=== PATIENT | female | born 1940 | race Caucasian/White ===

== ENCOUNTER 2019-06-11 19:21 | Emergency (ER) | payer MEDICARE, BC ==
[2019-06-11 19:34] VITALS: RESP 18
--- NOTE | 2019-06-11 20:24 | ED ---
Fall HPI - General Chief Complaint: Fall Stated Complaint: fall/head lac Time Seen by Provider: 06/11/19 19:38 Source: patient Mode of arrival: ambulatory - History of Present Illness Initial Comments: Patient is an 78-year-old female presenting to the emergency department after falling 3 days ago. Patient states she was carrying in groceries from outside and was walking up steps when she tripped on the bottom 2 falling backwards. Patient denies pain and a blood thinner. Patient believes she lost consciousness for an unknown amount of time as when she came to she noticed blood on the cement from her head. Patient states she grabbed her things and went inside. Patient states the following day she had an episode of nausea and vomiting and has been feeling lightheaded since the incident. Patient is also complaining of right-sided rib pain and right hip pain where she landed. Patient is able to ambulate however his has a slight limp. 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 No surgeries of the hip. Patient's younger sister came to visit her today and was told about the fall and made her come in to the ER for evaluation. Patient does have a wound to the back of her head that still loses a little blood. Patient has no other complaints at this time. Patient takes no medications. Upon arrival to the ER, BP is elevated at 171/88, rest of vitals normal. - Related Data Home Medications Medication Instructions Recorded Confirmed ALPRAZolam [Xanax] 0.5 mg PO ONCE PRN 06/11/19 06/11/19 Acetaminophen Tab [Tylenol Tab] 325 mg PO Q6H PRN 06/11/19 06/11/19 Allergies Allergy/AdvReac Type Severity Reaction Status Date / Time No Known Allergies Allergy Verified 06/11/19 21:24 Review of Systems ROS Statement: Those systems with pertinent positive or pertinent negative responses have been documented in the HPI. ROS Other: All systems not noted in ROS Statement are negative. Past Medical History Past Medical History: No Reported History History of Any Multi-Drug Resistant Organisms: None Reported Past Surgical History: No Surgical Hx Reported Past Psychological History: No Psychological Hx Reported Smoking Status: Never smoker Past Alcohol Use History: None Reported Past Drug Use History: None Reported General Exam - General Exam Comments Initial Comments: GENERAL: Well-appearing, well-nourished and in no acute distress. HEAD: Normocephalic. Patient has an open wound to the right posterior aspect of the skull, approximately 1 cm in diameter. No signs of basilar skull fracture. EYES: Pupils equal round and reactive to light, extraocular movements intact, sclera anicteric, conjunctiva are normal. ENT: TMs normal, nares patent, oropharynx clear without exudates. Moist mucous membranes. NECK: Normal range of motion, supple without lymphadenopathy or JVD. LUNGS: Breath sounds clear to auscultation bilaterally and equal. No wheezes rales or rhonchi. Patient has some mild bruising to the right flank area that is tender to the touch. HEART: Regular rate and rhythm without murmurs, rubs or gallops. ABDOMEN: Soft, nontender, normoactive bowel sounds. No guarding, no rebound. No masses appreciated. : Deferred EXTREMITIES: Pain with palpation of the lateral aspect of the right hip. Patient has full range of motion. NEUROLOGICAL: Cranial nerves II through XII grossly intact. Normal speech, normal gait. PSYCH: Normal mood, normal affect. SKIN: Warm, Dry, normal turgor, no rashes. Limitations: no limitations Course Vital Signs 06/11/19 06/11/19 19:29 22:39 Temperature 97.9 F 98 F Pulse Rate 99 82 Respiratory 18 18 Rate Blood Pressure 171/88 179/87 O2 Sat by Pulse 98 98 Oximetry Medical Decision Making - Medical Decision Making Patient is an 78-year-old female presenting after falling 3 days ago. Positive LOC. Patient denies blood thinners. Vital signs are stable. CT of the head shows subcutaneous soft tissue swelling but no acute cranial process. X-rays of the right ribs and chest as well as right hip reveal no acute fractures dislocations. Patient had wound was cleaned and bandaged. There is no active bleeding at this time. I discussed these findings with the patient and she is stable for discharge at this time. She has been resting comfortably, talking to sister during ER stay. She continues to deny chest pain, shortness of breath. Patient is agreeable with this plan of care. Strict return parameters were discussed with the patient she verbalized understanding. Patient will follow up with PCP. Case discussed with Dr. Ramírez. Disposition Clinical Impression: Fall, Right hip pain, Hematoma of right parietal scalp Disposition: HOME SELF-CARE Condition: Stable Instructions (If sedation given, give patient instructions): Fall Prevention for Older Adults (ED) Additional Instructions: Please return to the Emergency Department if symptoms worsen or any other concerns. Follow-up with PCP. Is patient prescribed a controlled substance at d/c from ED?: No Referrals: None,Stated [Primary Care Provider] - 1-2 days
--- NOTE | 2019-06-11 21:11 | CT ---
EXAMINATION: CT brain wo con DATE AND TIME: 06/11/2019 8:41 PM CLINICAL INDICATION: Pain; fall, wound TECHNIQUE: Standard departmental protocol.; 1099.4; COMPARISON: None. FINDINGS: There is soft tissue swelling with high density, consistent with hemorrhagic soft tissue wo und, over the right parietal bone. The underlying skull is negative for fracture. The entire calvariu m is intact. There is no intracranial hemorrhage. There is no intracranial mass or mass effect. No definite new in tra-axial attenuation defect. The paranasal sinuses, middle ear cavities, and mastoid sinus air cells are clear. The orbits are unremarkable. IMPRESSION: Subcutaneous soft tissue swelling, but no acute cranial/intracranial process.
--- NOTE | 2019-06-11 21:53 | XR ---
PROCEDURE: XR ribs RT w pa chest xray - 5V DATE AND TIME: 06/11/2019 8:51 PM CLINICAL INDICATION: PH[facility]; fall, pain TECHNIQUE: Department protocol COMPARISON: None FINDINGS: There is no pneumothorax or pleural effusion. There is no fracture or malalignment. No other acute radiographic findings. Incidentals: Mildly enlarged cardiac silhouette noted, in addition to a 1 cm calcified pulmonary granuloma in the right lower lung zone. IMPRESSION: No acute radiographic process.
--- NOTE | 2019-06-11 21:53 | XR ---
PROCEDURE: XR Hip Complete RT - 2V DATE AND TIME: 06/11/2019 8:51 PM CLINICAL INDICATION: PHH; fall, pain TECHNIQUE: Department protocol COMPARISON: None FINDINGS: There is no fracture or malalignment. The soft tissues are unremarkable. IMPRESSION: NO ACUTE PROCESS.
[2019-06-11 22:41] VITALS: BP 179/87; PULSE 82; TEMP 98
== END 2019-06-11 22:41 | disposition home or self-care (01) ==
LOC: EC 19:21
DX: S00.03XA Contusion of scalp, initial encounter (principal); M16.11 Unilateral primary osteoarthritis, right hip; R07.81 Pleurodynia; W10.9XXA Fall (on) (from) unspecified stairs and steps, initial encounter; Y93.89 Activity, other specified; Y92.009 Unspecified place in unspecified non-institutional (private) residence as the place of occurrence of the external cause
CPT/HCPCS: 70450; 73502; 99284

== ENCOUNTER 2022-09-20 15:39 | Emergency (ER) | payer BC, MEDICARE ==
--- NOTE | 2022-09-20 16:19 | ED ---
General Adult HPI - General Chief complaint: Urogenital Stated complaint: bladder infection Time Seen by Provider: 09/20/22 15:52 Source: patient, RN notes reviewed, old records reviewed Mode of arrival: ambulatory Limitations: no limitations - History of Present Illness Initial comments: 82-year-old female presents to the emergency room ambulatory with complaints of circular rashes to bilateral thighs and excoriation to left looney. Patient states the rash seems similar to psoriasis commercials that she has seen on TV so she went and bought [id number] cream which seems to have improved her rash. She states that she also has irritation to her inner thighs since using incontinence pads. She denies any dysuria or vaginal discharge. States no medical history. Does not take any medicine on a daily basis. Is a nonsmoker. Does not have a primary care doctor. -: month(s) (1) Location: left, right, lower extremity Radiation: non-radiation Severity scale (1-10): 8 Quality: burning Consistency: constant Improves with: other (OTC lotion) Associated Symptoms: denies other symptoms Treatments Prior to Arrival: other (OTC ointment for psoriasis) - Related Data Home Medications Medication Instructions Recorded Confirmed ALPRAZolam [Xanax] 0.5 mg PO ONCE PRN 06/11/19 06/11/19 Acetaminophen Tab [Tylenol Tab] 325 mg PO Q6H PRN 06/11/19 06/11/19 Previous Rx's Medication Instructions Recorded Hydrocortisone Cream 1 applic TOPICAL BID #28 gm 09/20/22 [Hydrocortisone 1% Cream] Allergies Allergy/AdvReac Type Severity Reaction Status Date / Time No Known Allergies Allergy Verified 09/20/22 15:49 Review of Systems ROS Statement: Those systems with pertinent positive or pertinent negative responses have been documented in the HPI. ROS Other: All systems not noted in ROS Statement are negative. Past Medical History Past Medical History: No Reported History History of Any Multi-Drug Resistant Organisms: None Reported Past Surgical History: Section Past Psychological History: No Psychological Hx Reported Smoking Status: Never smoker Past Alcohol Use History: None Reported Past Drug Use History: None Reported General Exam Limitations: no limitations General appearance: alert, in no apparent distress Head exam: Present: atraumatic Eye exam: Present: normal appearance. Absent: scleral icterus, conjunctival injection, periorbital swelling, periorbital tenderness Respiratory exam: Absent: respiratory distress, accessory muscle use Cardiovascular Exam: Present: regular rate Back exam: Present: full ROM. Absent: tenderness, CVA tenderness (R), CVA tenderness (L), rash noted Neurological exam: Present: alert, oriented X3 Psychiatric exam: Present: normal affect, normal mood Skin exam: Present: warm, dry, normal color, rash (excoriated left anterior looney, circular dried plaques bilateral anterior thighs approx 5cm round, dry excoriated errythematous inner thighs, no exudate) Course Vital Signs 09/20/22 09/20/22 15:47 16:46 Temperature 97.6 F 98 F Pulse Rate 90 79 Respiratory 20 19 Rate Blood Pressure 185/91 163/89 O2 Sat by Pulse 98 100 Oximetry Medical Decision Making - Medical Decision Making This is likely atopic dermatitis to her lower extremities and contact dermatitis due to incontinence pads to bilateral inner thighs. Chief complaint was dysuria however patient states she has not had any dysuria, she is having inner thigh discomfort due to her stress incontinence pads. Not exudative or concerning for cellulitis. Patient did not take any medicine and daily basis. Does not have a primary care doctor. No medical history. Nonsmoker. Denies any fevers. Was pt. sent in by a medical professional or institution (, PA, DIRECTOR OF CONSUMER MARKETING, urgent care, hospital, or shelter...) When possible be specific @ -No Did you speak to anyone other than the patient for history (EMS, parent, family, police, friend...)? What history was obtained from this source @ -No Did you review nursing and triage notes (agree or disagree)? Why? @ -I disagree, patient is not here for dysuria, states she has a rash to her legs and irritation to inner thighs Were old charts reviewed (outside hosp., previous admission, EMS record, old EKG, old radiological studies, urgent care reports/EKG's, shelter records)? Report findings @ -No old charts were reviewed Differential Diagnosis (chest pain, altered mental status, abdominal pain women, abdominal pain men, vaginal bleeding, weakness, fever, dyspnea, syncope, headache, dizziness, GI bleed, back pain, seizure, CVA, palpatations, mental health, musculoskeletal)? @ -Cellulitis, candidiasis, drug reaction, contact dermatitis, atopic dermatitis, this is not an all inclusive list EKG interpreted by me (3pts min.). @ -n/a X-rays interpreted by me (1pt min.). @ -None done CT interpreted by me (1pt min.). @ -None done U/S interpreted by me (1pt. min.). @ -None done What testing was considered but not performed or refused? (CT, X-rays, U/S, labs)? Why? @ -None What meds were considered but not given or refused? Why? @ -None Did you discuss the management of the patient with other professionals (professionals i.e. DrHayder, PA, DIRECTOR OF CONSUMER MARKETING, lab, RT, psych nurse, manager social services, machine sizer, teacher, logistics officer, housing case manager)? Give summary @ -No Was smoking cessation discussed for >3mins.? @ -No Was critical care preformed (if so, how long)? @ -No Were there social determinants of health that impacted care today? How? (Homelessness, low income, unemployed, alcoholism, drug addiction, transportation, low edu. Level, literacy, decrease access to med. care, [facility], rehab)? @ -No Was there de-escalation of care discussed even if they declined (Discuss DNR or withdrawal of care, Hospice)? DNR status @ -No What co-morbidities impacted this encounter? (DM, HTN, Smoking, COPD, CAD, Cancer, CVA, ARF, Chemo, Hep., AIDS, mental health diagnosis, sleep apnea, morbid obesity)? @ -None Was patient admitted / discharged? Hospital course, mention meds given and route, prescriptions, significant lab abnormalities, going to OR and other pertinent info. @ -Discharged Undiagnosed new problem with uncertain prognosis? @ -No Drug Therapy requiring intensive monitoring for toxicity (Heparin, Nitro, Insulin, Cardizem)? @ -No Were any procedures done? @ -No Diagnosis/symptom? @ -Contact dermatitis, atopic dermatitis Acute, or Chronic, or Acute on Chronic? @ -Acute Uncomplicated (without systemic symptoms) or Complicated (systemic symptoms)? @ -Uncomplicated Side effects of treatment? @ -No Exacerbation, Progression, or Severe Exacerbation? @ -No Poses a threat to life or bodily function? How? (Chest pain, [place], [place], pneumonia, PE, COPD, DKA, ARF, appy, cholecystitis, CVA, Diverticulitis, Homicidal, Suicidal, threat to staff... and all critical care pts) @ -No - Lab Data Lab Results 09/20/22 Range/Units 16:03 Urine Color Yellow Urine Appearance Cloudy H (Clear) Urine pH 6.0 (5.0-8.0) Ur Specific [place] 1.010 (1.001-1.035) Urine Protein Negative (Negative) Urine Glucose (UA) Negative (Negative) Urine Ketones Negative (Negative) Urine Blood Trace H (Negative) Urine Nitrite Positive H (Negative) Urine Bilirubin Negative (Negative) Urine Urobilinogen <2.0 (<2.0) mg/dL Ur Leukocyte Esterase Large H (Negative) Urine RBC 4 (0-5) /hpf Urine WBC 73 H (0-5) /hpf Ur Squamous Epith Cells 2 (0-4) /hpf Amorphous Sediment Occasional H (None) /hpf Urine Bacteria Many H (None) /hpf Granular Casts 3 (0) /lpf Urine Mucus Occasional H (None) /hpf Disposition Clinical Impression: Atopic dermatitis, Contact dermatitis Disposition: HOME SELF-CARE Condition: Good Instructions (If sedation given, give patient instructions): Contact Dermatitis (ED), Eczema (ED) Additional Instructions: Stop using the incontinence pads until resolution of the rash to inner thighs. Use the prescribed lotion to lower extremity lesions. Follow-up with dermatology next week. Return to the emergency room with any new or concerning symptoms. Prescriptions: Hydrocortisone Cream [Hydrocortisone 1% Cream] 1 applic TOPICAL BID #28 gm Is patient prescribed a controlled substance at d/c from ED?: No Referrals: None,Stated [Primary Care Provider] - 1-2 days Carly Bobby MD [STAFF PHYSICIAN] - 1-2 days Time of Disposition: 16:27
[2022-09-20 16:24] LABS: Amorphous Sediment,Urine Occasional /hpf; Appearance,Urine Cloudy (Clear); Bacteria,Urine Many /hpf; Bilirubin,Urine Negative (Negative); Blood,Urine Trace (Negative); Color,Urine Yellow; Glucose,Urine (UA) Negative (Negative); Granular Casts,Urine 3 /lpf (0); Ketones,Urine Negative (Negative); Leukocyte Esterase,Urine Large (Negative); Mucus,Urine Occasional /hpf; Nitrite,Urine Positive (Negative); Protein,Urine Negative (Negative); RBC,Urine 4 /hpf (0-5); Squamous Epithelial Cell,Urine 2 /hpf (0-4); Urobilinogen,Urine <2.0 mg/dL (<2.0); WBC,Urine 73 /hpf (0-5)
[2022-09-20 16:47] VITALS: BP 163/89; PULSE 79; RESP 19; TEMP 98
== END 2022-09-20 16:47 | disposition home or self-care (01) ==
LOC: EC 15:39
DX: L20.9 Atopic dermatitis, unspecified (principal); L25.9 Unspecified contact dermatitis, unspecified cause
CPT/HCPCS: 81001; 87086; 99283